=== PATIENT | female | born 1990 | race Caucasian/White ===

== ENCOUNTER 2020-04-09 00:46 | Outpatient (CLI) | payer SELFPAY ==
--- NOTE | 2020-04-09 | DI.US_ITS ---
EXAM: US BREAST LT LIMITED CLINICAL HISTORY: LT BREAST LUMPS, N63 TECHNIQUE: Ultrasound performed using standard protocol. COMPARISON: No exams were available for comparison FINDINGS: Breast ultrasound was performed according to the usual protocol. There is a 22 millimeter in diamete r intramammary mass in the 2 o'clock position approximately 3 cm from the nipple and there is a 15 mi llimeter in diameter mass in the 4 o'clock position approximately 2 cm from the nipple. These masses are both cysts os solid and of mildly decreased echogenicity, are fairly well-circumscribed and lobu lated, and show some internal little if any internal vascularity observed. Nonspecific, differential diagnosis would include fibroadenoma versus abnormal lymph node. Malignancy is not excluded on the basis of this examination. Biopsy should be considered for further evaluation to exclude malignancy. IMPRESSION: DATA REPOSITORY:
== END 2020-04-09 01:06 ==
DX: Z12.39 Encounter for other screening for malignant neoplasm of breast (principal); N63.20 Unspecified lump in the left breast, unspecified quadrant
CPT/HCPCS: 76642